=== PATIENT | male | born 1950 | race Caucasian/White ===

== ENCOUNTER 2018-09-16 22:37 | Inpatient (IN) | payer MEDICARE, OTHER ==
[~2018-09-16] VITALS: Ht 172.7 cm; Wt 74.0 kg
[2018-09-16 23:16] LABS: HEMATOCRIT 47.5 % (42.0-52.0); HEMOGLOBIN 16.2 g/dl (13.5-18.0); MEAN CELL VOLUME 90 fl (80.0-100.0); MEAN CORPUSCULAR HEMOGLOBIN 31 pg (27.0-31.0); MEAN CORPUSCULAR HGB CONC 34 g/dl (33.0-37.0); PLATELET COUNT 250 K/mm3 (130-400); RED BLOOD COUNT 5.26 M/mm3 (4.20-5.60); REDCELL DISTRIBUTION WIDTH-CV 13.6 % (11.5-14.5)
[2018-09-16 23:48] LABS: BAND 7 % (0-10); LYMPHOCYTE 4 % (20.0-51.0); NEUTROPHILS 85 % (42.0-75.2)
[2018-09-16 23:55] LABS: PLATELET ESTIMATE NORMAL (NORMAL)
[2018-09-17 00:33] LABS: ALBUMIN 3.7 gm/dL (3.5-5.0); BILIRUBIN,TOTAL 0.4 mg/dL (0.0-1.0); CALCIUM 8.8 mg/dL (8.4-10.2); CREATININE, serum 0.79 mg/dL (0.66-1.25); POTASSIUM 3.8 mmol/L (3.4-5.0); TOTAL PROTEIN 6.7 gm/dL (6.4-8.2)
[2018-09-17] MEDS ORDERED: SYNTHROID0.075 MG/T PO (01:27)
[2018-09-17 01:54] VITALS: BP 144/89; TEMP 98.2
[2018-09-17 02:15] LABS: MUCOUS Present /lpf; PH 5 (5-8); SQUAMOUS EPITHELIAL 0-2 /hpf; URINE APPEARANCE Clear; URINE BACTERIA None Seen /hpf; URINE BILIRUBIN Negative (NEGATIVE); URINE BLOOD Negative (NEGATIVE); URINE COLOR Yellow; URINE GLUCOSE Negative (NEGATIVE); URINE KETONE Trace (NEGATIVE); URINE LEUKOCYTE ESTERASE Negative (NEGATIVE); URINE NITRATE Negative (NEGATIVE); URINE PROTEIN(semi-quant) 1+ (NEGATIVE); URINE RBC 0-2 /hpf; URINE UROBILINOGEN Negative (NEGATIVE); URINE WBC 0-2 /hpf
[2018-09-17 02:23] LABS: COLLECTION METHOD CLEAN CATCH
[2018-09-17 03:34] VITALS: BP 117/83; PULSE 90; TEMP 98.3
[2018-09-17 08:07] VITALS: BP 138/87; PULSE 98; TEMP 98
[2018-09-17 12:32] VITALS: BP 120/78; PULSE 61; TEMP 98
[2018-09-17 16:07] VITALS: BP 123/88; PULSE 72; TEMP 97.6
[2018-09-17 19:42] VITALS: BP 142/82; PULSE 79; TEMP 98.4
[2018-09-18 04:45] VITALS: BP 116/71; PULSE 60; TEMP 98.2
[2018-09-18 07:54] VITALS: BP 145/90; PULSE 65; TEMP 97.8
[2018-09-18 11:57] VITALS: BP 119/69; PULSE 72; TEMP 98
[2018-09-18 17:01] VITALS: BP 129/77; PULSE 70; TEMP 98.2
[2018-09-18 20:20] VITALS: BP 132/70; PULSE 69; TEMP 97.7
[2018-09-18 23:27] VITALS: BP 126/77; PULSE 71; TEMP 97.7
[2018-09-19 03:39] VITALS: BP 136/74; PULSE 71; TEMP 98.2
[2018-09-19 07:30] LABS: HEMATOCRIT 43.4 % (42.0-52.0); HEMOGLOBIN 14.6 g/dl (13.5-18.0)
[2018-09-19 07:38] LABS: CALCIUM 8.5 mg/dL (8.4-10.2); CREATININE, serum 0.74 mg/dL (0.66-1.25); POTASSIUM 4.1 mmol/L (3.4-5.0)
[2018-09-19 07:56] VITALS: BP 157/91; PULSE 71; TEMP 98.1
[2018-09-19 11:41] VITALS: BP 151/77; PULSE 70; TEMP 98.3
[2018-09-19 15:32] VITALS: BP 134/79; PULSE 75; TEMP 98.2
[2018-09-19 20:05] VITALS: BP 141/79; PULSE 66; TEMP 98.6
[2018-09-20 04:44] VITALS: BP 140/75; PULSE 65; TEMP 98
[2018-09-20 09:06] VITALS: BP 150/80; PULSE 63; TEMP 97.6
[2018-09-20 12:28] VITALS: BP 149/74; PULSE 61; TEMP 98
== END 2018-09-20 14:28 | disposition home or self-care (01) | DRG 185 ==
LOC: COL.ER 22:37 → SURG 09-17 00:41 → COL.ER 09-17 00:41 → JCC 09-17 00:41 → SURG 09-20 14:28
PROVIDERS: Emergency Medicine; Surgery
DX: S22.42XA Multiple fractures of ribs, left side, initial encounter for closed fracture (principal); V80.010A Animal-rider injured by fall from or being thrown from horse in noncollision accident, initial encounter; F17.220 Nicotine dependence, chewing tobacco, uncomplicated; S00.83XA Contusion of other part of head, initial encounter; S40.012A Contusion of left shoulder, initial encounter; S20.212A Contusion of left front wall of thorax, initial encounter
CPT/HCPCS: A9284; J2270; J2405; J3010; J7030; Q9967